=== PATIENT | female | born 1945 | race Two or more races ===

== ENCOUNTER 2018-03-16 13:25 | Outpatient (CLI) | payer OTHER | END 2018-03-16 13:33 | disposition home or self-care (01) | LOC: MAMO-SONO 13:25 | DX: Z12.31 Encounter for screening mammogram for malignant neoplasm of breast (principal); Z87.898 Personal history of other specified conditions; N63.10 Unspecified lump in the right breast, unspecified quadrant; N63.20 Unspecified lump in the left breast, unspecified quadrant; N85.01 Benign endometrial hyperplasia; E78.49 Other hyperlipidemia; E08.65 Diabetes mellitus due to underlying condition with hyperglycemia; E03.8 Other specified hypothyroidism; I10 Essential (primary) hypertension; D51.1 Vitamin B12 deficiency anemia due to selective vitamin B12 malabsorption with proteinuria; D51.3 Other dietary vitamin B12 deficiency anemia; E55.9 Vitamin D deficiency, unspecified; D70.2 Other drug-induced agranulocytosis; I73.89 Other specified peripheral vascular diseases; R10.30 Lower abdominal pain, unspecified ==

== ENCOUNTER 2018-07-24 11:28 | Emergency (ER) | payer OTHER ==
[~2018-07-24] VITALS: Ht 162.6 cm; Wt 78.0 kg
== END 2018-07-24 15:27 | disposition home or self-care (01) ==
LOC: ER 11:28
DX: J40 Bronchitis, not specified as acute or chronic (principal)

== ENCOUNTER 2019-05-09 13:05 | Outpatient (CLI) | payer OTHER | END 2019-05-09 13:30 | disposition home or self-care (01) | LOC: MRI 13:05 | DX: M25.561 Pain in right knee (principal); M25.562 Pain in left knee; M25.552 Pain in left hip; M25.551 Pain in right hip | CPT/HCPCS: 73718 ==

== ENCOUNTER 2019-10-13 14:33 | Outpatient (CLI) | payer OTHER | END 2019-10-13 15:06 | disposition home or self-care (01) | LOC: MAMO-SONO 14:33 | PROVIDERS: ATTEND Internal Medicine Cardiovascular Disease | DX: Z12.31 Encounter for screening mammogram for malignant neoplasm of breast (principal) ==

== ENCOUNTER 2019-10-28 07:46 | Outpatient (CLI) | payer OTHER | END 2019-10-28 07:50 | disposition home or self-care (01) | LOC: NUCLEAR 07:46 | PROVIDERS: ATTEND Internal Medicine Cardiovascular Disease | DX: R07.89 Other chest pain (principal) | CPT/HCPCS: 78452; 93017; A9500; J0153 ==

== ENCOUNTER 2020-12-06 12:55 | Outpatient (CLI) | payer OTHER | END 2020-12-06 13:16 | disposition home or self-care (01) | LOC: MAMO-SONO 12:55 | PROVIDERS: ATTEND Internal Medicine Hematology & Oncology | DX: N64.59 Other signs and symptoms in breast (principal); Z12.31 Encounter for screening mammogram for malignant neoplasm of breast; D51.3 Other dietary vitamin B12 deficiency anemia; D51.1 Vitamin B12 deficiency anemia due to selective vitamin B12 malabsorption with proteinuria; E55.9 Vitamin D deficiency, unspecified; D70.2 Other drug-induced agranulocytosis; I73.89 Other specified peripheral vascular diseases; R10.30 Lower abdominal pain, unspecified; I10 Essential (primary) hypertension; E03.8 Other specified hypothyroidism; E08.65 Diabetes mellitus due to underlying condition with hyperglycemia; E78.49 Other hyperlipidemia; N85.01 Benign endometrial hyperplasia; N39.0 Urinary tract infection, site not specified; J41.0 Simple chronic bronchitis; Z12.11 Encounter for screening for malignant neoplasm of colon ==

== ENCOUNTER 2022-04-21 12:04 | Outpatient (CLI) | payer OTHER | END 2022-04-21 12:06 | disposition home or self-care (01) | LOC: LAB 12:04 | PROVIDERS: ATTEND Radiology Diagnostic Radiology | DX: R10.2 Pelvic and perineal pain (principal); D39.0 Neoplasm of uncertain behavior of uterus ==

== ENCOUNTER 2022-04-25 10:57 | Outpatient (CLI) | payer OTHER | END 2022-04-25 11:10 | disposition home or self-care (01) | LOC: MAMO-SONO 10:57 | PROVIDERS: ATTEND Internal Medicine Hematology & Oncology | DX: R10.2 Pelvic and perineal pain (principal); D39.0 Neoplasm of uncertain behavior of uterus; Z12.31 Encounter for screening mammogram for malignant neoplasm of breast; N63.0 Unspecified lump in unspecified breast; N64.4 Mastodynia; D51.1 Vitamin B12 deficiency anemia due to selective vitamin B12 malabsorption with proteinuria; D51.3 Other dietary vitamin B12 deficiency anemia; E55.9 Vitamin D deficiency, unspecified; D70.2 Other drug-induced agranulocytosis; I73.9 Peripheral vascular disease, unspecified; R10.30 Lower abdominal pain, unspecified; I10 Essential (primary) hypertension; E03.9 Hypothyroidism, unspecified; E08.65 Diabetes mellitus due to underlying condition with hyperglycemia; E78.5 Hyperlipidemia, unspecified; N85.01 Benign endometrial hyperplasia; N39.0 Urinary tract infection, site not specified; J41.0 Simple chronic bronchitis | CPT/HCPCS: 72197; 76641; 77067; Q9965; 72196 ==

== ENCOUNTER → 2023-03-30 | Outpatient (CLI) | payer OTHER | END | disposition home or self-care (01) | LOC: RAD 13:46 | PROVIDERS: ATTEND Specialist | DX: J45.991 Cough variant asthma (principal) ==

== ENCOUNTER → 2023-03-31 | Outpatient (CLI) | payer OTHER | END | disposition home or self-care (01) | LOC: TOM 12:11 | PROVIDERS: ATTEND Internal Medicine Hematology & Oncology | DX: D51.1 Vitamin B12 deficiency anemia due to selective vitamin B12 malabsorption with proteinuria (principal); D51.3 Other dietary vitamin B12 deficiency anemia; E55.9 Vitamin D deficiency, unspecified; D70.2 Other drug-induced agranulocytosis; I73.9 Peripheral vascular disease, unspecified; R10.30 Lower abdominal pain, unspecified; I10 Essential (primary) hypertension; E03.9 Hypothyroidism, unspecified; E08.65 Diabetes mellitus due to underlying condition with hyperglycemia; E78.5 Hyperlipidemia, unspecified; N85.01 Benign endometrial hyperplasia; N39.0 Urinary tract infection, site not specified; J41.0 Simple chronic bronchitis | CPT/HCPCS: 70492; 71270; 74178; Q9965 ==

== ENCOUNTER 2023-05-18 12:21 | Outpatient (CLI) | payer OTHER | END 2023-05-18 12:29 | disposition home or self-care (01) | LOC: MAMO-SONO 12:21 | PROVIDERS: ATTEND Internal Medicine Hematology & Oncology | DX: N63.0 Unspecified lump in unspecified breast (principal); N64.4 Mastodynia; D51.1 Vitamin B12 deficiency anemia due to selective vitamin B12 malabsorption with proteinuria; D51.3 Other dietary vitamin B12 deficiency anemia; E55.9 Vitamin D deficiency, unspecified; D70.2 Other drug-induced agranulocytosis; I73.9 Peripheral vascular disease, unspecified; R10.30 Lower abdominal pain, unspecified; I10 Essential (primary) hypertension; E03.9 Hypothyroidism, unspecified; E08.65 Diabetes mellitus due to underlying condition with hyperglycemia; E78.5 Hyperlipidemia, unspecified; N85.01 Benign endometrial hyperplasia; N39.0 Urinary tract infection, site not specified; J41.0 Simple chronic bronchitis; I63.9 Cerebral infarction, unspecified; Z12.31 Encounter for screening mammogram for malignant neoplasm of breast ==

== ENCOUNTER 2023-12-11 07:15 | Outpatient (CLI) | payer OTHER | END 2023-12-11 07:17 | disposition home or self-care (01) | LOC: NUCLEAR 07:15 | PROVIDERS: ATTEND Internal Medicine Cardiovascular Disease | DX: I20.9 Angina pectoris, unspecified (principal) | CPT/HCPCS: 78452; 93017; A9500 ==